=== PATIENT | female | born 1960 | race Caucasian/White ===

== ENCOUNTER 2019-01-03 05:24 | Inpatient (IN) | payer OTHER, MEDICAID ==
[~2019-01-03] VITALS: Ht 167.6 cm; Wt 58.1 kg
[2019-01-03] VITALS (37 sets, daily range): BP systolic 95–228; BP diastolic 46–151
[2019-01-03] MEDS ORDERED: CARBAMAZEPINE200 M6 PO (05:42)
[2019-01-03] MEDS ORDERED: NEURONTIN 300300 M1 PO (05:43)
[2019-01-03] MEDS ORDERED: TOPROL XL100 MG PO (05:44)
[2019-01-03] MEDS ORDERED: PANTOPRAZOLE SO40 MG PO (05:45)
[2019-01-03] MEDS ORDERED: ASPIR 8181 MG PO (05:45)
[2019-01-03] MEDS ORDERED: VITAMIN D1000 UNI1 PO (05:46)
[2019-01-03] MEDS ORDERED: PAXIL10 MG PO (05:47)
[2019-01-03] MEDS ORDERED: FLONASE 0.05%50 MCG NASAL (05:48)
[2019-01-03] MEDS ORDERED: PROAIR HFA8.5 GM INH (05:49)
[2019-01-03] MEDS ORDERED: SPIRIVA INH (05:52)
[2019-01-03 05:56] LABS: ABSOLUTE BASOPHILS 0.2 thou/uL (0.0-0.2); ABSOLUTE EOSINOPHILS 0.1 thou/uL (0.0-0.7); ABSOLUTE LYMPHOCYTES 5.3 thou/uL (0.8-5.3); ABSOLUTE MONOCYTES 0.9 thou/uL (0.0-1.2); ABSOLUTE NEUTROPHILS 9.6 thou/uL (1.6-8.1); BASOPHILS 1.1 %; EOSINOPHILS 0.7 %; HEMATOCRIT 37.9 % (37.0-47.0); HEMOGLOBIN 12.1 gm/dL (12.0-15.0); LYMPHOCYTES 33.1 %; MCH 29.9 pg (26.0-34.0); MCHC 31.9 g/dL (28.0-37.0); MCV 93.9 fL (80.0-100.0); MONOCYTES 5.4 %; MPV 11.5 fl. (7.2-11.1); NUCLEATED RBCS 0 /100WBC; PLATELET COUNT* 180 thou/uL (150-400); POLYS 59.7 %; RBC 4.04 mil/uL (4.20-5.00); RDW-CV 14.9 % (10.5-14.5)
[2019-01-03] MEDS ORDERED: SEREVENT DISKU50 MCG INH (05:56)
[2019-01-03 06:05] LABS: ANION GAP 6 mmol/L (7-16); BUN 22 mg/dL (7-18); CALCIUM 8.2 mg/dL (8.5-10.1); CHLORIDE 99 mmol/L (98-107); CO2 35 mmol/L (21-32); CREATININE 1.2 mg/dL (0.6-1.3); GLUCOSE 140 mg/dL (70-99); POTASSIUM 4.8 mmol/L (3.5-5.1); SODIUM 140 mmol/L (136-145)
[2019-01-03 06:15] LABS: ALBUMIN 3.7 g/dL (3.4-5.0); ALKALINE PHOSPHATASE 153 U/L (46-116); LIPASE 97 U/L (73-393); NT-PRO BRAIN NAT PEPTIDE 2964 pg/mL (<300); SGOT 182 U/L (15-37); SGPT 176 U/L (30-65); TOTAL BILIRUBIN 0.2 mg/dL (<0.1-1.0); TOTAL PROTEIN 7.3 g/dL (6.4-8.2); TROPONIN-I LEVEL <0.06 ng/mL (<0.06)
[2019-01-03 07:04] LABS: BE -2.1 mmol/L (-2 to +3)
[2019-01-03 07:06] LABS: pH 7.083 (7.340-7.450)
[2019-01-03 07:07] LABS: PCO2 103.3 mmHg (35.0-45.0); PO2 344.6 mmHg (75.0-100.0)
[2019-01-03 07:36] LABS: URINE BILIRUBIN NEGATIVE (Negative); URINE BLOOD TRACE (Negative); URINE CLARITY CLEAR; URINE COLOR YELLOW; URINE GLUCOSE-RANDOM NEGATIVE (Negative); URINE KETONES NEGATIVE (Negative); URINE LEUKOCYTES-REFLEX NEGATIVE (Negative); URINE NITRITE-REFLEX NEGATIVE (Negative); URINE PROTEIN 1+ (Negative); URINE SPECIFIC GRAVITY >= 1.030 (1.005-1.030); URINE UROBILINOGEN 0.2 E.U./dl (0.2-1.0)
[2019-01-03 07:44] LABS: AMP/METHAMP Negative (Negative); BARBITURATES Negative (Negative); BENZODIAZEPINES POSITIVE (Negative); COCAINE Negative (Negative); METHADONE Negative (Negative); OPIATES POSITIVE (Negative); PCP Negative (Negative); THC POSITIVE (Negative)
--- NOTE | 2019-01-03 08:15 | NUR ---
PT'S HOME MEDICATIONS WERE TAKEN TO PHARMACY
--- NOTE | 2019-01-03 08:34 | NUR ---
PT ARRIVED TO ICU AT 0755. PT ARRIVED FROM ER WITH SOFT BILATERAL WRIST RESTRAINTS.
--- NOTE | 2019-01-03 09:00 | NUR ---
AT 0900. PROPOFOL AT 85 MCG / KG/MIN. DR FLORES.
[2019-01-03 10:23] LABS: BE 0.6 mmol/L (-2 to +3); PO2 72.3 mmHg (75.0-100.0)
[2019-01-03 10:26] LABS: PCO2 59.2 mmHg (35.0-45.0); pH 7.296 (7.340-7.450)
--- NOTE | 2019-01-03 10:38 | NUR ---
PT HYPERTENSIVE AT ADMISSION. NOTIFIED AND RECIEVED ORDER FOR IV HYDRALAZINE. ADMININSTERED PER EMAR. BP WITHIN NORMAL LIMITS. WILL CONTINUE TO MONITOR. OG ADVANCED PER DR ORDERS.
--- NOTE | 2019-01-03 11:36 | EKG ---
[place] [address] ELECTROCARDIOGRAM REPORT Name: SHUBHAM FRAGA Room: [address] ADM IN [facility].#: [id number] Admission: 01/03/19 Attend Phys: Massiel Orta MD Discharge: Date of : 60 Report #: [id number] THIS REPORT FOR: //name// [facility] ED Test Date: 2019-01-03 Test Time: 05:55:28 Pat Name: SHUBHAM FRAGA Department: Room: [facility] Gender: F Private Household Worker: KEVIN : 1960 Requested By: Demi Han Order Number: [id number] MD: Dk Kong Measurements Intervals [place] Rate: 68 P: 88 MA: 141 QRS: 82 QRSD: 85 T: -90 QT: 406 QTc: 432 Interpretive Statements Sinus rhythm Biatrial enlargement Abnormal T, probable ischemia, widespread No previous ECG available for comparison Electronically Signed On 01-03-2019 11:36:06 CDT by Dk Kong [email or web address] <ELECTRONICALLY SIGNED> By: Dk Kong MD, [facility] 01/03/19 1136 0555 0555 Dk Kong MD, [facility] /EPI
--- NOTE | 2019-01-03 12:40 | NUR ---
PT HAS A CELL PHONE WITH HER. PT INTUBATED AND SEDATED, UNABLE TO COMMUNICATE. NO SUPPORT PERSON AVAILABLE. NO PHONE NUMBERS OF ANY CONTACTS. TURNED ON PHONE TO ATTEMPT TO MAKE A CALL TO [employer]. PHONE HAS A PASSCODE, UNABLE TO OPEN CONTACTS.
--- NOTE | 2019-01-03 12:46 | NUR ---
PT'S PHARMACY IS [facility] IN [place], [place] [phone] AND [place], [place] [phone]
--- NOTE | 2019-01-03 12:57 | NUR ---
JUDSON MORALES [phone] PT'S VANESA WHO CALLED EMS. PT HAS 2 SONS AND 2 DTRS. DAVID FRAGA & SHELBY (SONS). ANDRES BOLAÑOS (MOTHER). FRIEND REPORTS SHE HAS REACHED OUT TO THEM VIA INTERNET.
--- NOTE | 2019-01-03 14:40 | 2DMMODE ---
[place] [address] 2 D/M-MODE ECHOCARDIOGRAM Name: SHUBHAM FRAGA Room: [address] IN [facility]#: [id number] Admission: 01/03/19 Attend Phys: Massiel Orta, Discharge: Date of : 60 Date of Service: 01/03/19 1440 Report #: [id number] THIS REPORT FOR: //name// APPROVED REPORT Study performed: 01/03/2019 10:08:29 EXAM: Comprehensive 2D, Doppler, and color-flow Echocardiogram Patient Location: In-Patient Room #: [facility] Status: routine BSA: 1.70 HR: 76 bpm BP: 119/67 mmHg Rhythm: NSR Other Information Study Quality: Good Indications Elevated bnp 2D Dimensions IVSd: 8.33 (7-11mm) LVOT Diam: 19.20 (18-24mm) LVDd: 42.64 mm PWd: 8.33 (7-11mm) LVDs: 24.26 (25-40mm) Aortic Root: 28.17 mm Volumes Left Atrial Volume (Systole) LA ESV Index: 32.80 mL/m2 Aortic Valve AoV Peak Sahil.: 1.22 m/s AO Peak Gr.: 5.98 mmHg LVOT Max P.17 mmHg AO Mean Gr.: 3.03 mmHg LVOT Mean P.12 mmHg LVOT Max V: 1.14 m/s AO V2 VTI: 17.93 cm LVOT Mean V: 0.65 m/s DEJUAN (VTI): 3.44 cm2 LVOT V1 VTI: 21.29 cm Mitral Valve E/A Ratio: 1.30 MV Decel. Time: 200.98 ms MV E Max Sahil.: 1.00 m/[place] [address] 2 D/M-MODE ECHOCARDIOGRAM Name: SHUBHAM FRAGA Room: [address] IN [facility]#: [id number] Admission: 01/03/19 Attend Phys: Massiel Orta, Discharge: Date of : 60 Date of Service: 01/03/19 1440 Report #: [id number] MV PHT: 58.28 ms MVA (PHT): 3.77 cm2 TDI E/Lateral E': 12.50 E/Medial E': 11.11 Medial E' Sahil.: 0.09 m/s Lateral E' Sahil.: 0.08 m/s Pulmonary Valve PV Peak Sahil.: 1.02 m/s PV Peak Gr.: 4.17 mmHg Tricuspid Valve RAP Estimate: 5.00 mmHg TR Peak Gr.: 36.82 mmHg RVSP: 41.00 mmHg PA Pressure: 41.00 mmHg Left Ventricle The left ventricle is normal size. There is normal LV segmental wall motion. There is normal left ventricular wall thickness. Left ventricular systolic function is normal. The left ventricular ejection fraction is within the normal range. LVEF is 60-65%. The left ventricular diastolic function is normal. Right Ventricle The right ventricle is normal size. The right ventricular systolic function is normal. Atria The left atrium size is normal. The right atrium size is normal. Aortic Valve The aortic valve is normal in structure. No aortic regurgitation is present. There is no aortic valvular stenosis. Mitral Valve The mitral valve is normal in structure. Mild mitral regurgitation. No evidence of mitral valve stenosis. Tricuspid Valve The tricuspid valve is normal in structure. Mild tricuspid regurgitation. Moderate pulmonary hypertension. Pulmonic Valve The pulmonary valve is normal in structure. There is no pulmonic [place] [address] 2 D/M-MODE ECHOCARDIOGRAM Name: PHILLYSHUBHAM BERNAL Lilo Room: [address]#: [id number] Admission: 01/03/19 Attend Phys: Massiel Orta, Discharge: Date of : 60 Date of Service: 01/03/19 1440 Report #: [id number] Great Vessels The aortic root is normal in size. IVC is normal in size and collapses >50% with inspiration. Pericardium There is no pericardial effusion. <Conclusion> LVEF is 60-65%. There is normal LV segmental wall motion. There is no aortic valvular stenosis. No aortic regurgitation is present. Mild tricuspid regurgitation. Moderate pulmonary hypertension. Mild mitral regurgitation. There is no pericardial effusion. <ELECTRONICALLY SIGNED> By: Dk Kong MD, [facility]ACC 01/03/19 1440 1440 1440 Dk Kong MD, FACC /INF
--- NOTE | 2019-01-03 15:19 | NUR ---
ORDER NOTED FOR PT NEEDING SEDATION ON VENT, MULTIPLE IV MEDS AND B/P SUPPORT. UNABLE TO OBTAINE INFORMED CONSENT FROM PT RELATED TO SEDATION AND NO FAMILY IDENTIFIED. MEDICAL NECESSITY CONSENT SIGNED BY DR ORTEGA. RIGHT PPER ARM ASSESSED WITH ULTRASOUND AND RIGHT UPPER BASILIC IDENTIFIED AND MARKED. DUAL LUMAN POWER PICC PLACED PER HOSPITAL PROTOCOL USING ULTRASOUND, MAX BARRIER PRECAUTIONS AND MODIFIED SELDINGER TECHNIQUE. LINE PRE TRIMMED TO 42CM AND ADVANCED TO 0CM EXTERNAL WITH NO RESISTANCE. TIP CONFORMATION USING SHERLOCK 3CG. GOOD BRISK BLOOD RETURN NOTED AND FLUSHED WITH EASE. LINE SECURED AND RELEASED FOR IMMEDIATE USE. MARGIE ROSALES RN IN ROOM DURING PLACEMENT AND NOTIFIED LINE OK FOR USE.
--- NOTE | 2019-01-03 17:13 | NUR ---
PT DID NOT TOLERATE PROPOFOL, OR FUREOSEMIDE. PT BECAME HYPOTENSIVE WITH BP 70'S/50'S. AT THAT TIME RECEIVED ORDER FOR PICC LINE, PRESSOR AND 1L NS BOLUS. PT HAS NOT RECEIVED METOPROLOL THIS SHIFT. DR NOTIFIED. PT TO RECEIVE MAINTANCE FLUIDS. DR ORTEGA NOTIFIED ASKED IF WANTED TO DC FOR NOW PULMONARY IS TRYING TO DIUREIS PT. RECEIVED ORDERS TO DC NORMAL SALINE THIS EVENING. REPORTED TO DR 2ND DOSE OF FUREOSEMIDE NOT GIVEN PT DID NOT TOLERATE EARLIER THIS SHIFT. PT WAS NOT STARTED ON A PRESSOR. PULMONARY NOTIFIED OF SEDATION. PT AGITATED. SITTING UP IN BED, SMACKING HANDS AGAINST BED. PROPOFOL DC'D (DUE TO LOWERING BP) FENTANLY GTT MAXIMUM DOSAGE INCREASED, VERSED RE-ORDERED.
[2019-01-03 21:07] LABS: HEPATITIS B SURFACE AG Negative (Negative)
[2019-01-04] VITALS (22 sets, daily range): BP systolic 110–154; BP diastolic 45–74
[2019-01-04 05:07] LABS: BE 3.8 mmol/L (-2 to +3); pH 7.302 (7.340-7.450)
[2019-01-04 05:16] LABS: PCO2 65.6 mmHg (35.0-45.0)
[2019-01-04 05:17] LABS: PO2 33.2 mmHg (75.0-100.0)
[2019-01-04 05:28] LABS: HEMATOCRIT 30.8 % (37.0-47.0); MCHC 32.1 g/dL (28.0-37.0); MCV 93.6 fL (80.0-100.0); MPV 11.8 fl. (7.2-11.1); RBC 3.3 mil/uL (4.20-5.00); WBC 11.2 thou/uL (4.0-11.0)
[2019-01-04 05:33] LABS: HEMOGLOBIN 9.9 gm/dL (12.0-15.0)
[2019-01-04 05:41] LABS: ALBUMIN 2.8 g/dL (3.4-5.0); CALCIUM 7.8 mg/dL (8.5-10.1); CREATININE 0.9 mg/dL (0.6-1.3); MAGNESIUM 2.2 mg/dL (1.8-2.4); POTASSIUM 4.4 mmol/L (3.5-5.1); TOTAL BILIRUBIN 0.3 mg/dL (<0.1-1.0); TOTAL PROTEIN 5.7 g/dL (6.4-8.2)
[2019-01-04 06:00] LABS: BE 4.1 mmol/L (-2 to +3); PO2 99.4 mmHg (75.0-100.0); pH 7.383 (7.340-7.450)
[2019-01-04 06:03] LABS: PCO2 51.4 mmHg (35.0-45.0)
--- NOTE | 2019-01-04 07:22 | NUR ---
Pt appears restful and calm when undisturbed; however, when repositioning, suctioning, or performing other care requiring moving pt, she becomes restless and impulsive though she has not pulled at lines or tubes. When turning, pt wiggles off of wedges and settles into semi-gray position. VSS, though HR has dropped to 40s at times; held metoprolol doses overnight (MN and 0600). Pt on max doses of versed gtt and fentanyl gtt; and would likely benefit from more sedation. Will continue to monitor.
--- NOTE | 2019-01-04 09:49 | CON ---
[address] [address] CONSULTATION Name: SHUBHAM FRAGA Room: [address] IN ..#: [id number] Admission: 01/03/19 Attend Phys: Massiel Orta MD Discharge: Date of : 60 Report #: [id number] THIS REPORT FOR: //name// CC: FAM unknown Massiel Orta DATE OF SERVICE: 01/03/2019 REASON FOR CONSULTATION: Respiratory failure. HISTORY OF PRESENT ILLNESS: She is known to the patients who was intubated on sedation during my visit, did not participate in the history. No family at the bedside. Discussed with the nursing staff and reviewed medical records. This is a 58-year-old female patient apparently from out of town. She was visiting a friend here. She was found in distress this morning in the bathroom. EMS was called. Apparently, they tried per the report, oxygen, BiPAP and some steroids. She continued to be in distress. Her oxygen saturation was on 80% on 2 liter oxygen. The record indicated that she is chronically on oxygen. Also, the record indicated that she had history of COPD and asthma and apparently they had to bag ventilate her during the transport. We do not have much knowledge about her past medical history, as this is her first hospitalization at this facility. Apparently, when she was evaluated by the ER staff, she can speak only a couple of words and reported that she was nauseated, although she did not have vomiting or chest pain. She was intubated in the ER and her CO2 was severely elevated. Repeat ABG is pending at this point. During my visit, she was sedated with Versed and propofol. She was breathing about 16 times a minute. She was on 50% FiO2. REVIEW OF SYSTEMS: None obtainable due to the patient's condition. PAST MEDICAL HISTORY: Very limited per the record of COPD and asthma. PAST SURGICAL HISTORY: None obtainable. HOME MEDICATIONS: Per the records, carbamazepine, Neurontin, Toprol, aspirin, Paxil, Flonase. She is on Spiriva HandiHaler and albuterol. FAMILY HISTORY: None obtainable. SOCIAL HISTORY: None obtainable at this point. PHYSICAL EXAMINATION: VITAL SIGNS: During my visit, she was on 50% FiO2 with saturation around 95 to 97%. She was running blood pressure on the higher side in the range of 190/98, breathing 16 times a minute on the vent, pulse rate of 71, [place] [address] CONSULTATION Name: SHUBHAM FRAGA Room: [address]#: [id number] Admission: 01/03/19 Attend Phys: Massiel Orta MD Discharge: Date of : 60 Report #: [id number] Intubated on sedation, not arousable. HEENT: Head normocephalic, atraumatic. Pupils sluggish reaction to light equally bilaterally. External ear looks normal. NECK: Nontender, no masses felt. Trachea central. CHEST: Very tight air movement, very diminished with poor inspiratory phase and active wheezes. HEART: S1, S2, no murmur. ABDOMEN: Obese, soft, lax, benign, nontender, sluggish bowel sounds. No masses felt. EXTREMITIES: Lower extremities did not appreciate signs of DVT. No swelling and no calf tenderness, no edema. PSYCHIATRIC: Mood and affect could not be evaluated. NEUROLOGIC: Sedated, could not be evaluated. SKIN: No rash. LABORATORY DATA: Her white blood count is 16,000 with hemoglobin of 12 and platelets of 180. Her creatinine was 1.2 with a BUN of 22. Her bicarbonate is 35, her chloride is 99, potassium is 4.8, sodium 140. BNP was elevated. Her urine drug screen was positive for opiates and marijuana. D-dimer was elevated. Her ABGs after intubation 7.08/103/344. We are still waiting for the repeat of blood gas. Her chest x-ray showed signs of chronic changes. CT of the chest did not show PE, but showed small bilateral pleural effusion, signs of vascular congestion, no PE, but significant emphysematous changes. IMPRESSION: 1. Acute likely on chronic hypoxic and hypercapnic respiratory failure. 2. Bronchospasm. 3. Chronic obstructive pulmonary disease/asthma exacerbation. 4. Emphysematous changes on her CT scan. 5. Signs of fluid overload with elevated BNP and signs of vascular congestion on CT scan. 6. Pulmonary infiltrate. The patient with severe hypercapnic respiratory failure, I would keep on the vent for now. We need a followup blood gas on her and will adjust settings accordingly. Wean her oxygen down. Monitor her airway pressure. She will be on steroids, scheduled nebulization treatment. I will add Brovana and Pulmicort to her medication. Continue antibiotics. Monitor blood pressure. She would benefit from diuresis. We will change her sedation to fentanyl and propofol. Try to wean the Versed drip off, so she is more stable, we can use p.r.n. Versed. Hopefully, we can get further information from the family about her chronic medical issues or lung, status. We will give her a trial of diuresis. Thank you for the consult. [address] [address] CONSULTATION Name: SHUBHAM FRAGA Lilo Room: [address] IN [facility]#: [id number] Admission: 01/03/19 Attend Phys: Massiel Orta MD Discharge: Date of : 60 Report #: [id number] Critical care time 36 minutes. <ELECTRONICALLY SIGNED> By: Azalea Davenport MD 01/04/19 0949 1028 [id number] Davenport MD /nt
--- NOTE | 2019-01-04 10:30 | NUR ---
PT ADMITTED YESTERDAY WITH RESP FAILURE, INTUBATED IN THE E.D. AND REMAINS ON THE VENT. PER NURSING, PT WAS HERE IN THIS AREA VISITING HER FRIEND JUDSON CARMEN(PHONE [phone]). JUDSON DOES NOT HAVE PHONE NUMBERS FOR PT'S FAMILY BUT SHE HAS ATTEMPTED TO CONTACT THEM THRU FACE BOOK. NURSING WAS ABLE TO LOCATE PT'S PHARMACY. SPOKE WITH JUDSON THIS MORNING WHEN SHE CALLED TO CHECK ON PATIENT. SHE SAID SHE HAD BEEN ABLE TO REACH ONE OF HER SONS, HE DOES NOT HAVE A PHONE BUT SHE CAN CONTINUE TO CONTACT HIM ON FACEBOOK. JUDSON SAID PT WAS RECENTLY IN THE HOSPTIAL IN [place], [place], SHE ISN'T SURE WHICH ONE. SHE SAID PT HAD 'SOME KIND OF TEST ON HER HEART, BUT IT WAS OKAY.' JUDSON WILL TRY AND COME SEE PT LATER TODAY. LOOKED UP AND GAVE U.S. THE NAMES AND PHONE NUMBERS OF THE TWO HOSPITALS IN [facility], SHE WILL CONTACT THEM AND REQUEST ANY RECORDS BE SENT.
--- NOTE | 2019-01-04 18:13 | NUR ---
PATIENT SOMEWHAT PROGRESSING WELL TOWARDS GOALS. VERY DIFFICULT TO SEDATE, SEDATION AT MAX LIMITS. WHEN NOT STIMULATED PATIENT WILL DRIFT BACK TO SLEEP BUT MINOR NOISES EASILY AROUSE PATIENT. DIURETICS GIVEN THIS SHIFT PER JASMIN, SEE EMAR. NO APPARENT PAIN, NAUSEA OR SHORTNESS OF AIR. BED IN LOWEST POSITION, CALL LIGHT IN REACH, FITTER TYPE BAR AND SEGMENT IN PLACE.
[2019-01-05] VITALS (14 sets, daily range): BP systolic 101–172; BP diastolic 33–90
[2019-01-05 04:48] LABS: HEMATOCRIT 31.4 % (37.0-47.0); MCH 30.1 pg (26.0-34.0); MCV 94.3 fL (80.0-100.0); MPV 12.2 fl. (7.2-11.1); RBC 3.33 mil/uL (4.20-5.00); RDW-CV 15.2 % (10.5-14.5); WBC 13.7 thou/uL (4.0-11.0)
[2019-01-05 05:01] LABS: ALBUMIN 3.1 g/dL (3.4-5.0); CALCIUM 8.6 mg/dL (8.5-10.1); CREATININE 1.1 mg/dL (0.6-1.3); MAGNESIUM 2.2 mg/dL (1.8-2.4); POTASSIUM 4.5 mmol/L (3.5-5.1); TOTAL BILIRUBIN 0.3 mg/dL (<0.1-1.0); TOTAL PROTEIN 6.4 g/dL (6.4-8.2)
--- NOTE | 2019-01-05 07:13 | NUR ---
Pt very restless and anxious when awake. Restful from approx 6093-0149, and intermittently; however, when awakened she becomes very restless. Unable to effectively communicate with pen and paper (incomplete words or illegible writing), gestures, or mouthing words. VSS. Pt expressed that she is hopeful of being extubated today. Will continue to monitor.
--- NOTE | 2019-01-05 10:05 | NUR ---
PATIENT EXTUBATED AT 0815, TOLERATING 4 LITERS NASAL CANULA AT THIS TIME. VERY TALKATIVE AND INSTRUCTED TO REST SO HER VOCAL CORDS CAN HEAL. CALL LIGHT IN REACH, CARDAIC MONITOR IN PLACE, FALL PRECAUTIONS IN PLACE.
[2019-01-05] MEDS ORDERED: VALIUM5 MG PO (13:09)
--- NOTE | 2019-01-05 18:25 | NUR ---
PATIENT PROGRESSING WELL TOWARDS GOALS, EXTUBATED TODAY AND SITTING UP EATING WITH FRIEND AT BEDSIDE. ALL QUESTIONS ANSWERED. NO PAIN, NAUSEA OR SHORTNESS OF AIR. REMAINS ON HOME DOSE OF 3 LITERS NASAL CANULA. NO CONCERNS VOICED AT THIS TIME. BED IN LOWEST POSITON, CALL LIGHT IN REACH, WILL CONTINUE TO MONITOR
[2019-01-05] MEDS ORDERED: NORCO 5-325 TA1 EAC1 PO (19:23)
[2019-01-06] VITALS (11 sets, daily range): BP systolic 149–188; BP diastolic 70–148
[2019-01-06 03:57] LABS: HEMATOCRIT 31.2 % (37.0-47.0); HEMOGLOBIN 10.1 gm/dL (12.0-15.0); MCH 30.2 pg (26.0-34.0); MCHC 32.4 g/dL (28.0-37.0); MCV 93.4 fL (80.0-100.0); MPV 11.7 fl. (7.2-11.1); RBC 3.35 mil/uL (4.20-5.00); WBC 16.3 thou/uL (4.0-11.0)
[2019-01-06 04:21] LABS: ALBUMIN 3.4 g/dL (3.4-5.0); CALCIUM 8.6 mg/dL (8.5-10.1); CREATININE 0.9 mg/dL (0.6-1.3); MAGNESIUM 2.4 mg/dL (1.8-2.4); POTASSIUM 4.3 mmol/L (3.5-5.1); TOTAL BILIRUBIN 0.3 mg/dL (<0.1-1.0); TOTAL PROTEIN 6.5 g/dL (6.4-8.2)
--- NOTE | 2019-01-06 04:52 | NUR ---
Pt c/o chronic neck pain, rating 8/10. Kearsarge 5/325 ordered and given, but pt reports pain no better. At MN pt became very anxious and c/o SOA. States chest hurting, with increased pain with deep breathing; rating 5/10. Also c/o heartburn. EKG performed. Paged Dr. Erazo, orders received for one time dose of fentanyl. By the time fentanyl brought in for pt, pt appears much calmer and states she is breathing easier (O2 had been increased from 3L to 5L/min for SaO2 mid to upper 80s). Pt continues to c/o neck pain, essentially unrelieved by Kearsarge; and states she has been unable to sleep. VSS, though BP 180s/100s during timeframe when anxious. Will continue to monitor.
[2019-01-06 05:32] LABS: BE 6.5 mmol/L (-2 to +3); PO2 73.9 mmHg (75.0-100.0)
--- NOTE | 2019-01-06 11:15 | NUR ---
CHART REVIEWED, SPOKE WITH PT. PT LIVES IN [place], [place]. SHE WAS HERE VISITING A FRIEND WHEN SHE GOT SICK. PT HAS HOME 02 FROM [facility]. PT SAID HER FRIEND HAS ALREADY TALKED WITH HER SON AND D-I-L, THEY MAY COME TO AND THEN ONE OF THEM COULD DRIVE HER HOME IN HER CAR. SHE SAID SHE CAN ALSO STAY AT HER FRIEND'S HOUSE IN [place] AT DISCHARGE UNTIL SHE FEELS UP TO THE TRIP HOME. PT SAID MOST OF HER PORTABLE O2 TANKS ARE EMPTY, 'THEY WERE SUPPOSED TO COME SWITCH THEM OUT WEDNESDAY OR WEDNESDAY BUT I ENDED UP IN THE HOSPITAL. DISCUSSED ADVANCE DIRECTIVE WITH PT, SHE IS INTERESTED IN COMPLETING. REVIEWED FORM WITH HER, LEFT FOR HER TO READ OVER. WILL CHECK WITH HER LATER TO SEE IF SHE IS READY TO COMPLETE.
--- NOTE | 2019-01-06 14:08 | EKG ---
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[facility] 1960 Requested By: Dick Erazo Order Number: [id number] Reading MD: Sorin Hartmann Measurements Intervals [place] Rate: 79 P: 89 UT: 141 QRS: 76 QRSD: 86 T: 249 QT: 380 QTc: 436 Interpretive Statements Sinus rhythm Probable left atrial enlargement Abnormal T, probable ischemia, widespread Compared to ECG 01/03/2019 05:55:28 No significant changes Electronically Signed On 01-06-2019 14:08:26 CDT by Sorin Hartmann [email or web address] <ELECTRONICALLY SIGNED> By: Sorin Hartmann MD, [facility] 01/06/19 1405 0057 0057 Sorin Hartmann MD, [facility] /EPI
--- NOTE | 2019-01-06 18:56 | NUR ---
PATIENT RESTING IN BED. VITAL SIGNS STABLE AND PATINET UTILIZING 4L PER NASAL CANULA. HOURLY ROUNDING COMPLETED FOR DIMITRIS ET SAFETY
[2019-01-07] VITALS: BP 152/85
--- NOTE | 2019-01-07 03:52 | NUR ---
ASSUMED PT CARE APPROX 1930. PT IS AWAKE AND ORIENTED X4. VSS ON 3L OF O2/NC. MUSIC LIBRARIAN IN PLACE TRACING SR. PT COMPLAINED OF GENERALIZED BODY PAIN RELIEVED BY PAIN MEDS GIVEN PER SEP. PT WAS ABLE TO SLEEP MOST OF THE NIGHT. CALL LIGHT WITHIN REACH. HOURLY ROUNDING DONE FOR PT SAFETY.
[2019-01-07 04:00] VITALS: BP 163/90
[2019-01-07 05:18] LABS: HEMATOCRIT 31.3 % (37.0-47.0); HEMOGLOBIN 10.3 gm/dL (12.0-15.0); MCH 30.8 pg (26.0-34.0); MCHC 32.9 g/dL (28.0-37.0); MCV 93.6 fL (80.0-100.0); MPV 11.5 fl. (7.2-11.1); RBC 3.34 mil/uL (4.20-5.00); RDW-CV 15.7 % (10.5-14.5); WBC 10.5 thou/uL (4.0-11.0)
[2019-01-07 05:49] LABS: ALBUMIN 3.2 g/dL (3.4-5.0); CALCIUM 8.5 mg/dL (8.5-10.1); CREATININE 1.1 mg/dL (0.6-1.3); MAGNESIUM 2.4 mg/dL (1.8-2.4); POTASSIUM 4.3 mmol/L (3.5-5.1); TOTAL BILIRUBIN 0.3 mg/dL (<0.1-1.0); TOTAL PROTEIN 6.5 g/dL (6.4-8.2)
[2019-01-07 11:49] VITALS: BP 127/66
--- NOTE | 2019-01-07 15:07 | NUR ---
PATIENT RESTING IN BED. UP AD MURPHY IN ROOM. 4L PER NASAL CANULA. PERSONAL O2 TANK PROVIDED BY [facility] AT BEDSIDE FOR TRANSPORT HOME AT TIME OF DISCHAREG. HOURLY ROUNDING COMPLETED FOR PATIENT SAFETY. PATIENT VERY TEARFUL AT TIMES AND STATES THAT SHE IS QUITING SMOKING AND MARIJUANA
[2019-01-07 16:16] VITALS: BP 135/55; BP 156/83
[2019-01-07 20:00] VITALS: BP 150/85
[2019-01-08] VITALS: BP 150/81
[2019-01-08 03:46] VITALS: BP 165/88
[2019-01-08 05:12] LABS: HEMATOCRIT 31.2 % (37.0-47.0); HEMOGLOBIN 10.3 gm/dL (12.0-15.0); MCH 30.8 pg (26.0-34.0); MCHC 32.9 g/dL (28.0-37.0); MCV 93.5 fL (80.0-100.0); MPV 11.8 fl. (7.2-11.1); NUCLEATED RBCS 0 /100WBC; PLATELET COUNT* 66 thou/uL (150-400); RBC 3.34 mil/uL (4.20-5.00); RDW-CV 15.3 % (10.5-14.5); WBC 8.4 thou/uL (4.0-11.0)
[2019-01-08 05:31] LABS: ALBUMIN 3.2 g/dL (3.4-5.0); CALCIUM 8.2 mg/dL (8.5-10.1); CREATININE 0.9 mg/dL (0.6-1.3); POTASSIUM 4.3 mmol/L (3.5-5.1); TOTAL BILIRUBIN 0.3 mg/dL (<0.1-1.0); TOTAL PROTEIN 6.2 g/dL (6.4-8.2)
--- NOTE | 2019-01-08 06:37 | NUR ---
ASSESSMENT COMPLETED CHARTED. VSS. SEE MAR. SEE CHARTING. FALL PRECAUTIONS IN PLACE. HOURLY ROUNDING FOR SAFETY.
[2019-01-08 07:32] LABS: ABSOLUTE LYMPHOCYTES 0.7 thou/uL (0.8-5.3); ABSOLUTE MONOCYTES 0.2 thou/uL (0.0-1.2); ABSOLUTE NEUTROPHILS 7.6 thou/uL (1.6-8.1)
[2019-01-08 07:33] LABS: ANISOCYTOSIS 1+; LARGE PLATELETS RARE; PLATELET ESTIMATE DECREASED
[2019-01-08 07:35] LABS: GIANT PLATELETS OCCASIONAL; TEARDROPS Occasional
[2019-01-08 07:36] LABS: MACROCYTES 1+
[2019-01-08 07:37] LABS: HYPOCHROMASIA Occasional
[2019-01-08 08:00] VITALS: BP 157/87
[2019-01-08 12:00] VITALS: BP 166/77
[2019-01-08 16:00] VITALS: BP 164/82
--- NOTE | 2019-01-08 16:21 | NUR ---
PATIENT RESTING IN BED. UP AD MURPHY IN ROOM WITH O2 AT 3L PER NASAL CANULA. VITAL SIGND STABLE NAD PATIENT IN NOAPPARNET SIGNS OF DISTRESS AT THIS TIME.
[2019-01-08 20:00] VITALS: BP 152/81
[2019-01-09] VITALS: BP 180/99
--- NOTE | 2019-01-09 03:31 | NUR ---
ASSUMED PT CARE AT APPROX 1930. PT IS AWAKE AND ORIENTED X4. VSS ON 3L OF O2/NC. NETWORK OPERATIONS SPECIALIST IN PLACE TRACING SR. ASSESSMENT DONE AND CHARTED. PT C/O NECK PAIN PARTIALLY RELIEVED BY PAIN MEDS GIVEN PER SEP. PT IS ABLE TO SLEEP MOST OF THE NIGHT. CALL LIGHT WITHIN REACH. HOURLY ROUNDING DONE FOR PT SAFETY.
[2019-01-09 04:00] VITALS: BP 174/94
[2019-01-09 05:12] LABS: ABSOLUTE LYMPHOCYTES 1.5 thou/uL (0.8-5.3); ABSOLUTE MONOCYTES 0.4 thou/uL (0.0-1.2); ABSOLUTE NEUTROPHILS 8.4 thou/uL (1.6-8.1); BASOPHILS 0.2 %; HEMATOCRIT 34.6 % (37.0-47.0); HEMOGLOBIN 11.4 gm/dL (12.0-15.0); LYMPHOCYTES 14.2 %; MCH 30.9 pg (26.0-34.0); MCV 93.7 fL (80.0-100.0); MONOCYTES 4.4 %; MPV 12.5 fl. (7.2-11.1); NUCLEATED RBCS 0 /100WBC; PLATELET COUNT* 83 thou/uL (150-400); POLYS 81.2 %; RBC 3.69 mil/uL (4.20-5.00); RDW-CV 15.4 % (10.5-14.5); WBC 10.3 thou/uL (4.0-11.0)
[2019-01-09 05:18] LABS: CREATININE 0.7 mg/dL (0.6-1.3); POTASSIUM 4.2 mmol/L (3.5-5.1)
[2019-01-09 05:42] LABS: % SATURATION 22 % (20-39); IRON 65 ug/dL (50-175)
[2019-01-09 12:00] VITALS: BP 146/80
--- NOTE | 2019-01-09 14:50 | CON ---
[address] [address] CONSULTATION Name: SHUBHAM FRAGA Room: [address] IN [facility]#: [id number] Admission: 01/03/19 Attend Phys: Massiel Orta MD Discharge: Date of : 60 Report #: [id number] THIS REPORT FOR: //name// CC: FAM unknown Massiel Orta DATE OF SERVICE: 01/03/2019 CHIEF COMPLAINT: Respiratory failure. HISTORY OF PRESENT ILLNESS: The patient is a 58-year-old female who presented with markedly short of breath to the Emergency Room. She because of her acute respiratory failure was intubated in the Emergency Department. Her presenting ECG is a sinus rhythm with diffuse T-wave inversion. There is no record of chest discomfort and her cardiac troponin levels are normal. She apparently has a history of obstructive lung disease and had recently been discharged from another hospital and was told that there is a questionable heart abnormality, questionable stress GA. Unfortunately, those records are unavailable and it is not known exactly where this was, although her prescriptions on presentation were from [place], [place]. PAST MEDICAL HISTORY: Only known to have COPD and asthma, and questionable as aforementioned cardiology abnormality. HOME MEDICATIONS: Include carbamazepine, gabapentin, Toprol-XL 100 mg daily, aspirin, fluticasone, albuterol, and Atrovent. FAMILY HISTORY: Positive for high blood pressure. SOCIAL HISTORY: Not available. REVIEW OF SYSTEMS: Not available. PHYSICAL EXAMINATION: VITAL SIGNS: Blood pressure on presentation was 200/100. Currently, her blood pressure is 111/64, respiratory rate 17, O2 sats 100% on room air. She is in a sinus rhythm with heart rates in the 80s. GENERAL: This is a thin, middle-aged woman. She is intubated. She is actually tracking with her eyes and following commands though. HEENT: ET tube is secured to the patient. NECK: Supple. No jugular venous distention. CARDIOVASCULAR: Regular. I cannot hear an S3 or S4. There is no murmur. LUNGS: Diminished breath sounds bilaterally. ABDOMEN: Soft, nontender. EXTREMITIES: Distal extremities are normal. [place] [address] CONSULTATION Name: SHUBHAM FRAGA Lilo Room: [address] IN [facility]#: [id number] Admission: 01/03/19 Attend Phys: Massiel Orta MD Discharge: Date of : 60 Report #: [id number] Pulses, radial and dorsalis pedis pulses are normal. SKIN: Warm and dry. LABORATORY DATA: Electrocardiogram as noted above shows a sinus rhythm with deep T-wave inversion in the anterolateral precordial leads, heart rate 68. Hemoglobin is 12.1, white blood cell count 16, platelet count 180,000. Sodium is 140, potassium is 4.8, chloride is 99, BUN is 22, creatinine is 1.2. Troponin I is 0.06. BNP is 2964. AST is 182, ALT is 176. INR is 1.0. CT scan of the chest shows flattening of the diaphragms, no infiltrates. IMPRESSION: 1. Respiratory failure, seems to be a pulmonary mechanism. She does not have evidence of left heart failure. An echocardiogram has been ordered. 2. Questionable history of Takotsubo syndrome. We do not have any records from her hospitalization. Certainly, if she has a compatible ECG, we will check an echocardiogram and she is treated with a beta-juju already. She does not seem to be having an acute ischemic event though. 3. Chronic obstructive pulmonary disease exacerbation. PLAN: She will continue with aggressive medical therapy including steroids and antibiotics. She did receive one-time dose of Lasix, but I do not think this is heart failure. <ELECTRONICALLY SIGNED> By: Dk Kong MD, FACC 01/09/19 1450 1259 1916Dk Kong MD, FACC /nt
--- NOTE | 2019-01-09 16:00 | NUR ---
PHILLIP RESTING IN BED. UP AD MURPHY IN ROOM. 4L PER NASAL CANULA. CONGESTED COUGH WITH SOME SPUTUM PRODUCTION. IV LASIX TODAY PER PULMONOLOGY. SHE FREQUENTLY REQUIEST PAIN MEDICATION, ANTIANXIETY MEDICATION, AND MUUSCLE4 RELAXERS. VITAL SIGNS STABEL AND PATIENT IN NO APPARENT SIGND OF DISTRESS.
[2019-01-09 20:00] VITALS: BP 156/78
[2019-01-10] VITALS: BP 137/78
[2019-01-10 05:17] LABS: HEMATOCRIT 34.6 % (37.0-47.0); HEMOGLOBIN 11.4 gm/dL (12.0-15.0); MCH 30.7 pg (26.0-34.0); MCV 93.1 fL (80.0-100.0); MPV 11.1 fl. (7.2-11.1); RBC 3.72 mil/uL (4.20-5.00); RDW-CV 15.5 % (10.5-14.5); WBC 9.1 thou/uL (4.0-11.0)
--- NOTE | 2019-01-10 05:20 | NUR ---
ASSUMED PT CARE AT APPROX 1930. PT IS AWAKE AND ORIENTED X4. VSS ON 2L OF O2 PER NC. SPONGE CLIPPER IN PLACE TRACING AFIB. ASSESSMENT DONE AND CHARTED. PT C/O BILAT KNEE PAIN RELIEVED BY PAIN MEDS GIVEN PER SEP. POSITION CHANGES DONE Q2H. PT WAS ABLE TO SLEEP MOST OF THE NIGHT. CALL LIGHT WITHIN REACH. HOURLY ROUNDING DONE FOR PT SAFETY.
--- NOTE | 2019-01-10 05:24 | NUR ---
ASSUMED PT CARE APPROX 193. PT IS AWAKE AND ORIENTED X4. VSS ON 3L OF O2 PER NC. NOT IN RESPIRATORY DISTRESS. PT C/O NECK PAIN PARTIALLY RELIEVED BY PAIN MEDS GIVEN PER SEP. PT IS ABLE TO SLEEP MOST OF THE NIGHT. CALL LIGHT WITHIN REACH. HOURLY ROUNDING DONE FOR PT SAFETY.
[2019-01-10 05:30] LABS: CALCIUM 8.6 mg/dL (8.5-10.1); CREATININE 0.7 mg/dL (0.6-1.3); MAGNESIUM 2.2 mg/dL (1.8-2.4); POTASSIUM 4.1 mmol/L (3.5-5.1)
[2019-01-10 08:26] VITALS: BP 150/90
--- NOTE | 2019-01-10 10:16 | NUR ---
ASSUMED CARE OF PT THIS AM AROUND 714-MS STATUS IN PLACE INDICATED- UPON ASSESSMENT PT NOTED TO BE RESTING IN BED- PT A&O X4- [id number] OF BOWEL AND BLADDER- UP AD-MURPHY IN ROOM, STEADY GAIT NOTED- LCTA, DIMINSHED IN BASES- RESP EVEN AND UN-LABORED- PRODUCTIVE COUGH NOTED-VSS, O2 SAT 96% ON 3L VIA NC- ABD SOFT/ROUND/NON-TENDER, BS X4 QUADS- BM NOTED THIS AM- RUE PICC NOTED INTACT AND SL- IV ABT GIVEN THIS AM PRESCRIBED- GOOD PO INTAKE NOTED THIS AM WITH BREAKFAST-PT C/O NECK PAIN 02/25 THIS AM- PRN HYDROCODONE GIVEN AT 0912- PT REPORTS MEDICATION TO BE EFFECTIVE- CALL LIGHT AND PERSONAL BELONGINGS WITH IN REACH- PT MAKES NEEDS KNOWN- ALL NEEDS MET AT THIS TIME-WCTM
--- NOTE | 2019-01-10 14:13 | NUR ---
CONTINUE TO FOLLOW, MET WITH PT. STATES FEELING MUCH IMPROVED, PLANS FOR DC TOMORROW. PT TO STAY WITH HER FRIEND AT DC AND HAS A PORTABLE O2 TANK IN ROOM.
--- NOTE | 2019-01-10 16:27 | NUR ---
PT CURRELTY RESTING IN BED, EYES CLOSED- M/S STATUS IN PLACE INDICATED- RUE PICC NOTED IN PLACE AND SL- GOOD PO INTAKE NOTED THIS SHIFT WITH MEALS- CHEST X-RAY COMPLETED THIS SHIFT AND NOTED IMPROVING/NEARLY RESOLVED INFILTRATES- HYDROCODONE PRN AT 0912, AND 1509 R/T TO NECK PAIN THIS SHIFT-FLEXERIL X1 AT 1223- PT REPORTS MEDICAITONS TO BE EFFECTIVE- SOLU-MED DECREASED TO 40MG DAILY WITH POSSIBLE D/C IN AM- PULMONARY SIGNS OFF-PT MAKES NEEDS KNOWN- ALL NEEDS MET AT THIS TIME-WCTM
[2019-01-10 16:46] VITALS: BP 122/65
[2019-01-10 19:45] VITALS: BP 140/93
[2019-01-11] VITALS: BP 141/79
--- NOTE | 2019-01-11 06:36 | NUR ---
Pt rested well overnight. Medicated twice for c/o neck pain per pt request. Pt states she is hopeful of being discharged later today. VSS; remains on O2 @ 3L/min per home regimen. Will continue to monitor.
[2019-01-11 07:42] VITALS: BP 134/70
--- NOTE | 2019-01-11 09:22 | NUR ---
ASSUMED CARE OF PT AROUND 0715- M/S STATUS IN PLACE INDICATED- UPON ASSESSMENT PT NOTED TO BE RESTING IN BED- PT A&O X4-CONTINENT OF BOWEL AND BLADDER- UP AD-MURPHY IN ROOM, STEADY GAIT NOTED- LCTA, RESP EVEN AND UN-LABORED- PRODUCTIVE COUGH NOTED WITH REPORTED CLEAR SPUTUM PER PT- VSS, O2 SAT 98% ON 3L VIA NC- ABD SOFT/ROUND/NON-TENDER, BS X4- PT REPORTS TO HAVE HAD 2 BM THIS AM- RUE PICC NOTED IN PLACE AND SL- IV ABT GIVEN THIS AM PRESCIBED- GOOD PO INTAKE NOTED THIS AM WITH BREAKFAST- PRN FLEXERIL AND HYDROCODONE GIVEN THIS AM AT 0830 FOR REPORTS OF BACK/NECK PAIN- PT REPORTS MEDICATIONS TO BE EFFECTIVE- CALL LIGHT AND PERSONAL BELONGINGS WITH IN REACH- PT MAKES NEEDS KNOWN- ALL NEEDS MET AT THIS TIME-WCTM
[2019-01-11 10:35] VITALS: BP 149/72
[2019-01-11] MEDS ORDERED: VALIUM5 MG PO (10:52)
[2019-01-11] MEDS ORDERED: CYMBALTA30 MG PO (10:52)
[2019-01-11] MEDS ORDERED: CEFDINIR300 MG PO (10:52)
[2019-01-11] MEDS ORDERED: NEURONTIN 300300 M1 PO (10:52)
[2019-01-11] MEDS ORDERED: CYCLOBENZAPRINE10 MG PO (10:52)
[2019-01-11] MEDS ORDERED: LIDOPATCH1 EACH TOP (10:52)
[2019-01-11] MEDS ORDERED: CARBAMAZEPINE200 M6 PO (10:52)
[2019-01-11] MEDS ORDERED: PANTOPRAZOLE SO40 MG PO (10:52)
[2019-01-11] MEDS ORDERED: NORCO 5-325 TA1 EAC1 PO (10:52)
[2019-01-11] MEDS ORDERED: PREDNISONE 10 M10 MG PO (10:52)
[2019-01-11] MEDS ORDERED: IPRAT-ALBUT 0.5-3 ML INH (10:52)
[2019-01-11] MEDS ORDERED: BUSPIRONE HCL5 MG PO (10:52)
[2019-01-11 11:46] VITALS: BP 149/72
--- NOTE | 2019-01-11 12:12 | NUR ---
REAL ESTATE MANAGEMENT SPECIALIST INFORMED THAT THE PATIENT WOULD NEED HOME NEBULIZER AT D/C. PATIENT INFORMS THAT SHE WILL D/C TO HER FRIENDS HOME. D/C SIZING MACHINE OPERATOR SPOKE TO [facility]LE[facility] TO INFORM OF THE PATIENT'S D/C AND TO INFORM OF THE REFERRAL FOR A HOME NEBULIZER. D/C SIZING MACHINE OPERATOR INFORMED MELANIA WITH [facility] OF THE NEED TO DELIVER THE NEBULIZER HERE TO THE PATIENT'S HOSPITAL ROOM. MELANIA INFORMS THAT SHE WILL HAVE THE [employer]ICK GR[employer]ER DELIVER THE DEBULIZER AT SOON POSSIBLE. [facility] WILL REMAIN AVAILABLE TO ASSIST AND FOLLOW NEEDED. [facility] [phone]
--- NOTE | 2019-01-11 14:52 | NUR ---
ORDERS RECEIEVED FOR OKAY TO D/C HOME THIS SHIFT PER - CM HERE TO ARRANGE FOR NEBULIZER, THAT HAS BEEN DELIVERED TO PT WITH INSTRUCTIONS GIVEN AT THIS TIME- PT HAS OWN O2 AT HOME AND O2 TANK HERE FOR D/C- [facility] D/C'D THIS SHIFT PRIOR TO D/C WITH PRESSURE APPLIED X5 MIN AND GAUZE/TRASPARENT DRESSING PLACED- TIP NOTED INTACT AT TIME OF D/C- HOME MEDICATIONS OBTAINED FROM PHARMACY AND GIVEN TO PT PRIOR TO D/C- D/C EDUCATION/TEACHING/NEEDED FOLLOW UP'S GIVEN TO PT WITH ALL QUESTIONS AND CONCERNS ADDRESSED PRIOR TO D/C-WRITTEN SCRIPTS ALONG WITH WRITTEN EDUCATION PROVIDED TO PT PRIOR TO D/C- FLUTTER VALVE TO BE SUPPLIED TO PRIOR TO D/C PER RT- BELONGINGS PACKED AND ACCOUNTED FOR PER PT- PT CURRENTLY DRESSED AND READY FOR D/C AWAITING RIDE FROM FRIEND FOR D/C- ANTICIPATED ELEMENTARY EDUCATION TEACHER TIME OF 1630- ALL NEEDS MET AT THIS TIME-WCTM
== END 2019-01-11 16:30 | disposition home or self-care (01) | DRG 871 ==
LOC: EDBD 05:24 → M.ERS 05:24 → M.ICU 06:43 → M.2W 06:43 → M.TBA-ER 06:43 → M.ICU 08:02 → M.2W 01-06 16:15
PROVIDERS: Emergency Medicine; Family Medicine; Internal Medicine; ADMIT Internal Medicine
PROC: 5A1945Z Respiratory Ventilation, 24-96 Consecutive Hours (ICD-10-PCS; principal; 2019-01-03)
PROC: 0BH17EZ Insertion of Endotracheal Airway into Trachea, Via Natural or Artificial Opening (ICD-10-PCS; 2019-01-03)
PROC: 02HV33Z Insertion of Infusion Device into Superior Vena Cava, Percutaneous Approach (ICD-10-PCS; 2019-01-03)
PROC: B548ZZA Ultrasonography of Superior Vena Cava, Guidance (ICD-10-PCS; 2019-01-03)
DX: A41.9 Sepsis, unspecified organism (principal); J15.6 Pneumonia due to other Gram-negative bacteria; J96.21 Acute and chronic respiratory failure with hypoxia; J96.22 Acute and chronic respiratory failure with hypercapnia; J44.0 Chronic obstructive pulmonary disease with (acute) lower respiratory infection; J44.1 Chronic obstructive pulmonary disease with (acute) exacerbation; J45.901 Unspecified asthma with (acute) exacerbation; I42.9 Cardiomyopathy, unspecified; I51.81 Takotsubo syndrome; F17.200 Nicotine dependence, unspecified, uncomplicated; G40.909 Epilepsy, unspecified, not intractable, without status epilepticus; D69.6 Thrombocytopenia, unspecified; F19.10 Other psychoactive substance abuse, uncomplicated; I16.0 Hypertensive urgency; G89.29 Other chronic pain; Z82.49 Family history of ischemic heart disease and other diseases of the circulatory system; Z79.899 Other long term (current) drug therapy; Z79.82 Long term (current) use of aspirin